=== PATIENT | female | born 1990 | race African-American/Black ===

== ENCOUNTER 2016-11-01 09:21 | Emergency (ER) | payer OTHER ==
[2016-11-01 11:05] VITALS: BP 125/91
== END 2016-11-01 11:05 | disposition home or self-care (01) ==
LOC: ED 09:21
DX: N39.0 Urinary tract infection, site not specified (principal)
CPT/HCPCS: 87491; 87591

== ENCOUNTER 2017-01-20 21:21 | Emergency (ER) | payer OTHER ==
[2017-01-20 21:33] VITALS: BP 129/95
== END 2017-01-20 22:00 | disposition left against medical advice (07) ==
LOC: ED 21:21
DX: Z53.21 Procedure and treatment not carried out due to patient leaving prior to being seen by health care provider (principal)